=== PATIENT | female | born 1995 | race Caucasian/White ===

== ENCOUNTER 2018-07-30 21:06 | Emergency (ER) | payer BC, OTHER ==
[2018-07-30 21:14] VITALS: BP 102/64; PULSE 75; TEMP 98.4; BMI 26.6
--- NOTE | 2018-07-30 21:19 | PDOC ---
Rapid Medical Evaluation Chief Complaint: Pain Time Seen by Provider: 07/30/18 21:10 Medical Evaluation: Allergies Allergy/AdvReac Type Severity Reaction Status Date / Time No Known Allergies Allergy Verified 07/30/18 21:14 Vital Signs Temp Pulse Resp BP Pulse Ox 98.4 F 75 18 102/64 100 07/30/18 21:10 07/30/18 21:10 07/30/18 21:10 07/30/18 21:10 07/30/18 21:10 07/30/18 21:15 The patient presents with a chief complaint of: 2wks h/o epigastric/ LUQ abdominal pain which has been worsening. seen in [facility] yesterday who did labs and abdominal U/S which was normal. pt has results with her. Patient discharged on cipro for UTI but told to come to ED if abd pains worsens for CT Pertinent physical exam findings: A&O x 3. mild epigastric tenderness w/o rebound or guarding. I have ordered the following: CBC,CMP, UA, Uhcg, uCX. CT of abd/pelvis with contrast The patient will proceed to the ED for further evaluation. Discharge Disposition - Diagnosis Abdominal pain Qualifiers: Abdominal location: epigastric Qualified Code(s): R10.13 - Epigastric pain - Discharge Dispostion Condition at time of disposition: Stable - Referrals - Patient Instructions - Post Discharge Activity
--- NOTE | 2018-07-30 21:29 | PDOC ---
History of Present Illness <Russ Walters - Last Filed: 07/30/18 23:09> - General History Source: Patient - History of Present Illness Initial Comments: 07/30/18 22:01 The patient is a 23 year old female with no significant PMH who presents to our ED c/o 3 week history of abdominal pain. Pain is sharp,intermittent, localized to her LLQ with no identifiable triggering or relieving factors. Denies fevers/ chills, dysuria/hematuria, increased urgency/frequency. Last BM yesterday and was normal. Tolerating PO intake. Was evaluated at urgent care yesterday and started on Ciprofloxacin for a presumptive UTI. The patient denies chest pain, shortness of breath, numbness/tingling, cough, sore throat. NKDA Surgical: none reported Social: social alcohol, occasional marijuana As per EMR patient evaluated in our ED in 2014 for vaginal rash. Urine culture grew Lactobaccilus species. <Yoly Willingham - Last Filed: 08/02/18 17:15> - General Chief Complaint: Pain Stated Complaint: STOMACH PAIN Time Seen by Provider: 07/30/18 21:10 Past History <Russ Walters - Last Filed: 07/30/18 23:09> - Past Medical History COPD: No GI Disorders: Yes (IBS/acid reflux) - Suicide/Smoking/Psychosocial Hx Smoking Status: No Smoking History: Never smoked Have you smoked in the past 12 months: No Number of Cigarettes Smoked Daily: 0 Information on smoking cessation initiated: No Hx Alcohol Use: Yes (social) Drug/Substance Use Hx: Yes Substance Use Type: None <Yoly Willingham - Last Filed: 08/02/18 17:15> - Past Medical History Allergies/Adverse Reactions: Allergies Allergy/AdvReac Type Severity Reaction Status Date / Time No Known Allergies Allergy Verified 07/30/18 21:14 Home Medications: Ambulatory Orders Naproxen [Naprosyn -] 500 mg PO BID PRN #14 tablet 07/26/15 Review of Systems - Review of Systems HEENTM: No: Recent change in vision Respiratory: No: Cough, Shortness of Breath Cardiac (ROS): No: Chest Pain, Lightheadedness, Palpitations, Syncope ABD/GI: Yes: Abdominal cramping. No: Constipated, Diarrhea : No: Burning, Dysuria Neurological: No: Weakness, Dizziness <Yoly Willingham - Last Filed: 08/02/18 17:15> *Physical Exam - Vital Signs Last Vital Signs Temp Pulse Resp BP Pulse Ox 98.4 F 75 18 102/64 100 07/30/18 21:10 07/30/18 21:10 07/30/18 21:10 07/30/18 21:10 07/30/18 21:10 <Russ Walters - Last Filed: 07/30/18 23:09> - Vital Signs Last Vital Signs Temp Pulse Resp BP Pulse Ox 98.4 F 75 18 102/64 100 07/30/18 21:10 07/30/18 21:10 07/30/18 21:10 07/30/18 21:10 07/30/18 21:10 - Physical Exam General Appearance: Yes: Nourished, Appropriately Dressed HEENT: positive: Normal Voice, Hearing Grossly Normal Neck: positive: Trachea midline, Supple Respiratory/Chest: positive: Lungs Clear, Normal Breath Sounds Cardiovascular: positive: S1, S2. negative: Edema, JVD Female Pelvic Exam: positive: cervical os closed. negative: adnexal tenderness , vaginal bleeding Gastrointestinal/Abdominal: positive: Normal Bowel Sounds, Soft Musculoskeletal: negative: CVA Tenderness (R), CVA Tenderness (L) Extremity: positive: Normal Capillary Refill, Normal Inspection Integumentary: positive: Normal Color, Dry Neurologic: positive: cytopathology technologist II-XII NML intact, Fully Oriented, Alert <Yoly Willingham - Last Filed: 08/02/18 17:15> ED Treatment Course - LABORATORY CBC & Chemistry Diagram: 07/30/18 21:32 07/30/18 21:32 - ADDITIONAL ORDERS Additional order review: Laboratory Results 07/30/18 07/30/18 07/30/18 21:51 21:51 21:32 Sodium 138 Potassium 4.1 Chloride 104 Carbon Dioxide 29 Anion Gap 5 L BUN 12 Creatinine 0.7 Creat Clearance w eGFR 103.70 Random Glucose 96 Calcium 9.3 Total Bilirubin 0.4 AST 26 ALT 48 Alkaline Phosphatase 80 Total Protein 7.6 Albumin 3.7 Urine Color Yellow Urine Appearance Clear Urine pH 5.0 Ur Specific [place] >= 1.030 Urine Protein Negative Urine Glucose (UA) Negative Urine Ketones Trace Urine Blood Trace-lysed Urine Nitrite Negative Urine Bilirubin Negative Urine Urobilinogen 0.2 Ur Leukocyte Esterase Negative Urine HCG, Qual Negative 07/30/18 21:32 RBC 4.23 MCV 86.5 MCHC 33.9 RDW 13.1 MPV 8.4 Neutrophils % 65.4 Lymphocytes % 27.1 D Monocytes % 5.6 Eosinophils % 1.3 Basophils % 0.6 - Medications Given in the ED: ED Medications Discontinued Medications Generic Name Dose Route Start Last Admin Trade Name Kayli PRN Reason Stop Dose Admin Morphine Sulfate 2 mg 07/30/18 22:27 07/30/18 22:34 Morphine Injection - IVPUSH 07/30/18 22:28 2 mg ONCE ONE Administration <Russ Walters - Last Filed: 07/30/18 23:09> - LABORATORY CBC & Chemistry Diagram: 07/30/18 21:32 07/30/18 21:32 <Yoly Willingham - Last Filed: 08/02/18 17:15> Medical Decision Making - Medical Decision Making 07/30/18 22:13 23 year old female with LLQ pain. VS unremarkable. Non-palpable adnexa. Currently being treated for UTI. Will obtain TVUS to r/o torsion. Also consider pyelonephritis, cystitis. Given history and clinical presentaiton, less like SAB, Threatened AB, . Morphine for pain control. Reassess. 07/30/18 22:42 No leukocytosis My read of TVUS shows no torsion UA clean - diff pending 07/30/18 22:52 Repeat belly exam benign 07/30/18 22:56 TVUS negative for torsion, right cyst vs. follicle At this time patient low clinical suspicion for medical emergency. Will discharge home with return precautions, GI, OB-Homeowner Association Manager and PMD follow-up for further evaluation. <Yoly Willingham - Last Filed: 08/02/18 17:15> *DC/Admit/Observation/Transfer <Russ Waltres - Last Filed: 07/30/18 23:09> - Discharge Dispostion Decision to Admit order: No <Yoly Willingham - Last Filed: 08/02/18 17:15> Diagnosis at time of Disposition: Abdominal pain Qualifiers: Abdominal location: epigastric Qualified Code(s): R10.13 - Epigastric pain - Discharge Dispostion Disposition: HOME Condition at time of disposition: Fair - Referrals Referrals: Kari Barrientos MD [Primary Care Provider] - [facility] – [place] [facility] [place] [Provider Group] - Patient Instructions Printed Discharge Instructions: DI for Abdominal Pain-Adult Additional Instructions: You were evaluated today for abdominal pain. At this time, you are safe for discharge home. An ultrasound of your uterus and ovaries showed no emergency medical condition. Please make an appointment to follow-up with your primary care doctor in the next 3 days. Please also see a retail client solutions analyst, you may see the retail client solutions analyst who evaluated you previously or we have provided a referral. Please also follow-up with your OB-Homeowner Association Manager should your pain persist. Your care is not complete until you are evaluated by these physicians. Return to the ED for any new/worsening/concerning symptoms. - Post Discharge Activity Forms/Work/School Notes: Back to Work
[2018-07-30 21:38] LABS: BASO % 0.6 % (0-2.0); EOS % 1.3 % (0-4.5); HEMATOCRIT 36.6 % (32.4-45.2); HEMOGLOBIN 12.4 GM/dL (10.7-15.3); LYMPH % 27.1 % (8-40); MCH 29.3 pg (25.7-33.7); MCHC 33.9 g/dl (32.0-36.0); MEAN CELL VOLUME 86.5 fl (80-96); MEAN PLT VOLUME 8.4 fl (7.5-11.1); MONO % 5.6 % (3.8-10.2); NEUT % 65.4 % (42.8-82.8); PLATELET COUNT 278 K/MM3 (134-434); RBC 4.23 M/mm3 (3.60-5.2); RDW 13.1 % (11.6-15.6); WHITE BLOOD COUNT 7.6 K/mm3 (4.0-10.0)
[2018-07-30 22:04] LABS: ALBUMIN 3.7 g/dl (3.4-5.0); ALK PHOS 80 U/L (45-117); ANION GAP 5 MMOL/L (8-16); BILIRUBIN,TOTAL 0.4 mg/dL (0.2-1); BLOOD UREA NITROGEN 12 mg/dL (7-18); CALCIUM 9.3 mg/dL (8.5-10.1); CHLORIDE 104 mmol/L (98-107); CO2 29 mmol/L (21-32); CREATININE 0.7 mg/dL (0.55-1.3); GLUCOSE,RANDOM 96 mg/dL (74-106); POTASSIUM 4.1 mmol/L (3.5-5.1); SGOT/AST 26 U/L (15-37); SGPT/ALT 48 U/L (13-61); SODIUM 138 mmol/L (136-145); TOT PROT 7.6 g/dl (6.4-8.2)
--- NOTE | 2018-07-30 22:17 | PDOC ---
Attending Attestation - HPI HPI: 07/30/18 22:37 The patient is a 23 year old female, with no significant past medical history, who presents to the emergency department with, 3 weeks of intermittent, sharp, LLQ pain. Patient was started on Ciprofloxacin yesterday for a UTI at urgent care. She denies recent fevers, chills, headache or dizziness. Allergies: NKDA Past surgical history: None reported. Social history: Occasional marijuana usage. Primary Care Physician: Dr. Barrientos <Russ Walters - Last Filed: 07/30/18 22:37> - Resident Resident Name: Yoly Willingham - ED Attending Attestation I have performed the following: I have examined & evaluated the patient, The case was reviewed & discussed with the resident, I agree w/resident's findings & plan, Exceptions are as noted - Physicial Exam PE: 07/30/18 23:25 Agree with detailed exam as documented by resident Abd soft, nt, nd, no guarding, no rebound - Medical Decision Making 07/30/18 23:26 3 weeks of intermittent, episodic LLQ abd px consider torsion, ruptured cyst, infection US neg for acute pathology UA clean Exam benign No acute pathology requiring immediate intervention DC with f/u with pcp <Guanakito Guaman - Last Filed: 07/30/18 23:27> Attestations - Attestations 07/30/18 22:37 Documentation prepared by Russ Walters, acting as medical claims assistant for Guanakito Guaman MD. <Russ Walters - Last Filed: 07/30/18 22:37>
[2018-07-30 22:18] LABS: URINE APPEARANCE Clear; URINE BILIRUBIN Negative (NEGATIVE); URINE COLOR Yellow; URINE GLUCOSE (UA) Negative (NEGATIVE); URINE KETONE Trace (NEGATIVE); URINE LEUK ESTERASE Negative (NEGATIVE); URINE NITRITE Negative (NEGATIVE); URINE PROTEIN Negative (NEGATIVE); URINE UROBILINOGEN 0.2 mg/dL (0.2-1.0)
[2018-07-30] MEDS ORDERED: morphine CARPU-JECT 2 MG/1 ML DISP.SYRIN IVPUSH ONE (22:27)
[2018-07-30] MEDS ORDERED: MORPHINE SULFATE 2 MG/ML VIAL ONE (22:31)
[2018-07-30] MEDS ORDERED: ACETAMINOPHEN 325 MG TABLET (FP) PO ONE (23:17)
[2018-07-30] MEDS ORDERED: ACETAMINOPHEN 325 MG TABLET (FP) ONE (23:20)
[2018-07-30 23:39] LABS: EPI CELLS 0-3 /HPF (0-5/HPF); URINE BACTERIA FEW /hpf (NEGATIVE); URINE RBC 0-3 /hpf (0-4); URINE WBC 0 /hpf (0-5)
== END 2018-07-30 23:25 | disposition home or self-care (01) ==
LOC: JER 21:06
PROC: 3E033NZ Introduction of Analgesics, Hypnotics, Sedatives into Peripheral Vein, Percutaneous Approach (ICD-10-PCS; principal; 2018-07-30)
DX: R10.13 Epigastric pain (principal); Z87.440 Personal history of urinary (tract) infections
CPT/HCPCS: 36415; 76830-TC; 80053; 81003; 84703; 85025; 87086; 99283-25

== ENCOUNTER 2018-09-17 16:06 | Emergency (ER) | payer BC | END 2018-09-17 17:49 | disposition home or self-care (01) | LOC: JERFT 16:06 ==

== ENCOUNTER 2020-08-09 09:13 | Emergency (ER) | payer BC ==
[2020-08-09 09:36] VITALS: BP 134/74; PULSE 112; TEMP 98.2; BMI 21.9
== END 2020-08-09 09:56 | disposition left against medical advice (07) ==
LOC: JER 09:13
DX: F12.90 Cannabis use, unspecified, uncomplicated (principal)
CPT/HCPCS: 99281-25